=== PATIENT | female | born 1990 | race Caucasian/White ===

== ENCOUNTER 2020-12-07 11:30 | Inpatient (IN) | payer OTHER ==
[2020-12-07] MEDS ORDERED: ACETAMINOPHEN TAB 500 MG TAB PO STA (11:57)
[2020-12-07] MEDS ORDERED: DEXAMETHASONE SOD PHOSPHATE 10 MG/ML 1 ML VIAL IV STA (11:57)
--- NOTE | 2020-12-07 12:40 | XR ---
EXAMINATION TYPE: XR chest 2V DATE OF EXAM: 12/07/2020 COMPARISON: NONE HISTORY: Chest pain TECHNIQUE: Frontal and lateral views of the chest are obtained. FINDINGS: Scattered infiltrates are seen bilaterally felt to reflect Covid 19 pneumonia. No evidence for pneumothorax. No pleural effusion. The cardiac silhouette size is within normal limits. The osseous structures are grossly intact. IMPRESSION: 1. Scattered infiltrates are seen bilaterally felt to reflect Covid 19 pneumonia.
[2020-12-07 13:07] LABS: ALT 37 U/L (4-34); AST 48 U/L (14-36); African American GFR (CKD) >90 (>60 ml/min/1.73 sqM); Albumin 4.3 g/dL (3.5-5.0); Alkaline Phosphatase 67 U/L (38-126); Anion Gap 12 mmol/L; Blood Urea Nitrogen 13 mg/dL (7-17); C Reactive Protein 30.5 mg/L (<10.0); Calcium 9.1 mg/dL (8.4-10.2); Carbon Dioxide 24 mmol/L (22-30); Chloride 103 mmol/L (98-107); Glucose 130 mg/dL (74-99); Non-African American GFR(CKD) >90 (>60 ml/min/1.73 sqM); Potassium 3.4 mmol/L (3.5-5.1); Sodium 139 mmol/L (137-145); Total Bilirubin 0.7 mg/dL (0.2-1.3); Total Protein 7.6 g/dL (6.3-8.2)
[2020-12-07 13:25] LABS: Basophils % (A) 0 %; Eosinophils % (A) 0 %; HCT 40.4 % (34.0-46.0); Lymphocytes # (A) 0.7 k/uL (1.0-4.8); Lymphocytes % (A) 9 %; MCH 28.8 pg (25.0-35.0); MCHC 34.6 g/dL (31.0-37.0); Mean Platelet Volume 7.1; Monocytes # (A) 0.4 k/uL (0-1.0); Monocytes % (A) 5 %; Neutrophils # (A) 6.2 k/uL (1.3-7.7); Neutrophils % (A) 84 %; Platelet Count 247 k/uL (150-450); RBC 4.87 m/uL (3.80-5.40); RDW 12.5 % (11.5-15.5); WBC 7.3 k/uL (3.8-10.6)
[2020-12-07 13:32] LABS: Prothrombin Time 10.4 sec (9.0-12.0)
[2020-12-07 13:44] LABS: D-Dimer 0.67 mg/L FEU (<0.60); Partial Thromboplastin Time 21.1 sec (22.0-30.0)
[2020-12-07] MEDS ORDERED: NALOXONE 0.4 MG/ML 1 ML VIAL IV PRN (14:09)
[2020-12-07] MEDS ORDERED: IBUPROFEN 400 MG TAB PO PRN (14:09)
[2020-12-07] MEDS ORDERED: ACETAMINOPHEN TAB 325 MG TAB PO PRN (14:09)
--- NOTE | 2020-12-07 14:09 | ED ---
General Adult HPI - General Chief complaint: Shortness of Breath Stated complaint: Covid+, CANDIE Time Seen by Provider: 12/07/20 11:35 Source: patient, EMS, RN notes reviewed Mode of arrival: EMS Limitations: no limitations - History of Present Illness Initial comments: 30-year-old female presents emergency Department chief complaint of shortness of breath. Patient states that she tested positive for occult with recently. Patient states that she's having increasing symptoms. Patient states she woke up this morning felt like she was gasping for air. Upon EMS arrival found to be in the 80s on her pulse ox. Patient states that she has no significant lung disease. She continues to have fevers chills body aches. Patient denies any chest pain no leg pain or leg swelling. - Related Data Allergies Allergy/AdvReac Type Severity Reaction Status Date / Time No Known Allergies Allergy Verified 12/07/20 11:52 Review of Systems ROS Statement: Those systems with pertinent positive or pertinent negative responses have been documented in the HPI. ROS Other: All systems not noted in ROS Statement are negative. Past Medical History Past Medical History: Hypertension, Thyroid Disorder History of Any Multi-Drug Resistant Organisms: None Reported Past Surgical History: Cholecystectomy Past Psychological History: No Psychological Hx Reported Smoking Status: Never smoker Past Alcohol Use History: Occasional Past Drug Use History: None Reported General Exam Limitations: no limitations General appearance: alert, in no apparent distress Head exam: Present: atraumatic, normocephalic, normal inspection Eye exam: Present: normal appearance, PERRL, EOMI. Absent: scleral icterus, conjunctival injection, periorbital swelling ENT exam: Present: normal exam, normal oropharynx, mucous membranes moist Neck exam: Present: normal inspection, full ROM. Absent: tenderness, meningismus, lymphadenopathy Respiratory exam: Present: normal lung sounds bilaterally. Absent: respiratory distress, wheezes, rales, rhonchi, stridor Cardiovascular Exam: Present: normal rhythm, tachycardia, normal heart sounds. Absent: systolic murmur, diastolic murmur, rubs, gallop, clicks GI/Abdominal exam: Present: soft, normal bowel sounds. Absent: distended, tenderness, guarding, rebound, rigid Neurological exam: Present: alert, oriented X3 Psychiatric exam: Present: normal affect, normal mood Course Vital Signs 12/07/20 12/07/20 12/07/20 11:40 11:55 12:10 Temperature 100.5 F H 100.5 F H 100.5 F H Pulse Rate 112 H 110 H 108 H Respiratory 24 24 22 Rate Blood Pressure 124/77 128/78 120/78 O2 Sat by Pulse 98 97 98 Oximetry 12/07/20 12/07/20 12/07/20 12:25 12:40 13:58 Temperature 100.4 F H 100.3 F H 99.0 F Pulse Rate 105 H 107 H 99 Respiratory 20 20 18 Rate Blood Pressure 116/74 119/83 114/73 O2 Sat by Pulse 97 98 98 Oximetry Medical Decision Making - Medical Decision Making 22-year-old presented for dyspnea. Patient found be hypoxic she is 90% to high 80s on room air. Patient will be admitted for covid Hypoxia - Lab Data Result diagrams: 12/07/20 12:15 12/07/20 12:15 Lab Results 12/07/20 12/07/20 12/07/20 Range/Units 12:15 12:15 12:15 WBC 7.3 (3.8-10.6) k/uL RBC 4.87 (3.80-5.40) m/uL Hgb 14.0 (11.4-16.0) gm/dL Hct 40.4 (34.0-46.0) % MCV 83.0 (80.0-100.0) fL MCH 28.8 (25.0-35.0) pg MCHC 34.6 (31.0-37.0) g/dL RDW 12.5 (11.5-15.5) % Plt Count 247 (150-450) k/uL MPV 7.1 Neutrophils % 84 % Lymphocytes % 9 % Monocytes % 5 % Eosinophils % 0 % Basophils % 0 % Neutrophils # 6.2 (1.3-7.7) k/uL Lymphocytes # 0.7 L (1.0-4.8) k/uL Monocytes # 0.4 (0-1.0) k/uL Eosinophils # 0.0 (0-0.7) k/uL Basophils # 0.0 (0-0.2) k/uL PT 10.4 (9.0-12.0) sec INR 1.0 (<1.2) APTT 21.1 L (22.0-30.0) sec D-Dimer 0.67 H (<0.60) mg/L FEU Sodium 139 (137-145) mmol/L Potassium 3.4 L (3.5-5.1) mmol/L Chloride 103 (98-107) mmol/L Carbon Dioxide 24 (22-30) mmol/L Anion Gap 12 mmol/L BUN 13 (7-17) mg/dL Creatinine 0.68 (0.52-1.04) mg/dL Est GFR (CKD-EPI)AfAm >90 (>60 ml/min/1.73 sqM) Est GFR (CKD-EPI)NonAf >90 (>60 ml/min/1.73 sqM) Glucose 130 H (74-99) mg/dL Calcium 9.1 (8.4-10.2) mg/dL Magnesium 2.0 (1.6-2.3) mg/dL Total Bilirubin 0.7 (0.2-1.3) mg/dL AST 48 H (14-36) U/L ALT 37 H (4-34) U/L Alkaline Phosphatase 67 (38-126) U/L Troponin I (0.000-0.034) ng/mL C-Reactive Protein 30.5 H (<10.0) mg/L Total Protein 7.6 (6.3-8.2) g/dL Albumin 4.3 (3.5-5.0) g/dL 12/07/20 Range/Units 12:15 WBC (3.8-10.6) k/uL RBC (3.80-5.40) m/uL Hgb (11.4-16.0) gm/dL Hct (34.0-46.0) % MCV (80.0-100.0) fL MCH (25.0-35.0) pg MCHC (31.0-37.0) g/dL RDW (11.5-15.5) % Plt Count (150-450) k/uL MPV Neutrophils % % Lymphocytes % % Monocytes % % Eosinophils % % Basophils % % Neutrophils # (1.3-7.7) k/uL Lymphocytes # (1.0-4.8) k/uL Monocytes # (0-1.0) k/uL Eosinophils # (0-0.7) k/uL Basophils # (0-0.2) k/uL PT (9.0-12.0) sec INR (<1.2) APTT (22.0-30.0) sec D-Dimer (<0.60) mg/L FEU Sodium (137-145) mmol/L Potassium (3.5-5.1) mmol/L Chloride (98-107) mmol/L Carbon Dioxide (22-30) mmol/L Anion Gap mmol/L BUN (7-17) mg/dL Creatinine (0.52-1.04) mg/dL Est GFR (CKD-EPI)AfAm (>60 ml/min/1.73 sqM) Est GFR (CKD-EPI)NonAf (>60 ml/min/1.73 sqM) Glucose (74-99) mg/dL Calcium (8.4-10.2) mg/dL Magnesium (1.6-2.3) mg/dL Total Bilirubin (0.2-1.3) mg/dL AST (14-36) U/L ALT (4-34) U/L Alkaline Phosphatase (38-126) U/L Troponin I <0.012 (0.000-0.034) ng/mL C-Reactive Protein (<10.0) mg/L Total Protein (6.3-8.2) g/dL Albumin (3.5-5.0) g/dL Disposition Clinical Impression: Pneumonia due to COVID-19 virus, Hypoxia Disposition: ADMITTED IP TO THIS [facility] Condition: Serious Referrals: Elisha Longoria MD [Primary Care Provider] - 1-2 days
--- NOTE | 2020-12-07 15:59 | P.CNPUL ---
History of Present Illness Consult date: 12/07/20 Reason for consult: dyspnea, pneumonia History of present illness: 10-year-old female patient, obesity BMI of 44.8 maintained on Synthroid for hyp othyroidism and the patient also has history of hypertension. She is currently hospitalized for: 19 related pneumonia. The patient came into the hospital because of worsening shortness of breath. She was having fever and chills and bodyaches. Her initial pulse ox was around 80% and she was placed on oxygen and currently she is running at 3 L per minute nasal cannula. She was febrile throughout the emergency stay with a T-max of 100.5. For now, the patient started also on Decadron. Her symptoms started on 11/30/2020 and she started having some issues sinus problems. She went to see her primary care physician, she was given antibiotics and the same time she got checked for COVID 19 and she turned out to be positive. Over the past week, she continued to have fever and chills and some shortness of breath and fatigue. 2 days ago, she contacted her physician again and she was given a steroid which she did not take. She end up coming into the hospital emergency department. Review of Systems Constitutional: Reports chills, Reports fatigue, Reports fever, Reports weakness, Reports weight gain Eyes: denies as per HPI, denies blurred vision, denies bulging eye, denies decreased vision, denies diplopia, denies discharge, denies dry eye, denies irritation, denies itching, denies pain, denies photophobia, denies loss of peripheral vision, denies loss of vision, denies tunnel vision/blind spots Ears: deny: decreased hearing, ear discharge, earache, tinnitus Ears, nose, mouth and throat: Denies headache, Denies sore throat Breasts: absent: as per HPI, change in shape, gynecomastia, masses, nipple discharge, pain, skin changes, swelling Cardiovascular: Reports dyspnea on exertion Respiratory: Reports cough, Reports dyspnea Gastrointestinal: Reports as per HPI Genitourinary: Reports as per HPI Menstruation: Reports as per HPI Musculoskeletal: Reports as per HPI Musculoskeletal: absent: ankle pain, ankle stiffness, ankle swelling Integumentary: Reports as per HPI Neurological: Reports as per HPI Psychiatric: Reports as per HPI Endocrine: Reports as per HPI Hematologic/Lymphatic: Reports as per HPI Allergic/Immunologic: Reports as per HPI Past Medical History Past Medical History: Hypertension, Thyroid Disorder History of Any Multi-Drug Resistant Organisms: None Reported Past Surgical History: Cholecystectomy Past Psychological History: No Psychological Hx Reported Smoking Status: Never smoker Past Alcohol Use History: Occasional Past Drug Use History: None Reported Medications and Allergies Home Medications Medication Instructions Recorded Confirmed Type Albuterol Inhaler [Ventolin Hfa 2 puff INHALATION RT-Q4H PRN 12/07/20 12/07/20 History Inhaler] Labetalol [Trandate] 200 mg PO BID 12/07/20 12/07/20 History Levothyroxine Sodium [Synthroid] 50 mcg PO DAILY 12/07/20 12/07/20 History predniSONE [Deltasone] 40 mg PO DAILY 12/07/20 12/07/20 History Allergies Allergy/AdvReac Type Severity Reaction Status Date / Time No Known Allergies Allergy Verified 12/07/20 14:48 Physical Exam Vitals: Vital Signs Temp Pulse Resp BP Pulse Ox 12/07/20 13:58 99.0 F 99 18 114/73 98 12/07/20 12:40 100.3 F H 107 H 20 119/83 98 12/07/20 12:25 100.4 F H 105 H 20 116/74 97 12/07/20 12:10 100.5 F H 108 H 22 120/78 98 12/07/20 11:55 100.5 F H 110 H 24 128/78 97 12/07/20 11:40 100.5 F H 112 H 24 124/77 98 Intake and Output 12/07/20 12/07/20 12/07/20 06:59 14:59 22:59 Other: Weight 149.685 kg Obese, comfortable BMI is 44.8,The patient appeared well nourished and normally developed. Vital signs as documented. Head exam is unremarkable. No scleral icterus or corneal arcus noted. Neck is without jugular venous distension, thyromegaly, or carotid bruits. Carotid upstrokes are brisk bilaterally. Lungs are diminished and there are some crackles in lung bases to auscultation and percussion. Cardiac exam reveals the PMI to be normally sized and situated. Rhythm is regular. First and second heart sounds normal. No murmurs, rubs or gallops. Abdominal exam reveals normal bowel sounds, no masses, no organomegaly and no aortic enlargement. Extremities are nonedematous and both femoral and pedal pulses are normal. Results - Laboratory Findings CBC and BMP: 12/07/20 12:15 12/07/20 12:15 PT/INR, D-dimer PT 10.4 sec (9.0-12.0) 12/07/20 12:15 INR 1.0 (<1.2) 12/07/20 12:15 D-Dimer 0.67 mg/L FEU (<0.60) H 12/07/20 12:15 Abnormal lab findings: Abnormal Labs 12/07/20 12/07/20 12/07/20 12:15 12:15 12:15 Lymphocytes # 0.7 L APTT 21.1 L D-Dimer 0.67 H Potassium 3.4 L Glucose 130 H AST 48 H ALT 37 H C-Reactive Protein 30.5 H - Diagnostic Findings Chest x-ray: image reviewed Assessment and Plan Plan: 1 acute COVID 19 related pneumonia with secondary dyspnea and cough and shortness of breath. The patient symptoms started on 11/30/2020. The patient was diagnosed on the same day and since then the patient's condition is progressively getting worse 2 Dyspnea, secondary to above 3 acute hypoxic respiratory failure secondary to above and the patient is currently on 3 L of oxygen by nasal cannula 4 Lymphopenia secondary to above 5 obesity with a BMI of 44.8 6 hypothyroidism 7 hypertension Plan Start the patient on oxygen 3 L and titrate the fluid to maintain a saturation above 90% Decadron 6 mg by mouth daily Remdesivir a total of 5 days per protocol Lovenox 40 mg subcu for DVT prophylaxis Vitamin C and vitamin D and zinc Resume home medications We'll continue to follow
[2020-12-07] MEDS: ENOXAPARIN 40 MG/0.4 ML SYRINGE SQ SCH (16:26)
[2020-12-07] MEDS: ZINC SULFATE 220 MG CAP PO SCH (16:26)
[2020-12-07] MEDS: ASCORBIC ACID 500 MG TAB PO SCH (16:26)
[2020-12-07] MEDS: CHOLECALCIFEROL 25 MCG (1000 IU) TABLET PO SCH (16:26)
[2020-12-07] MEDS ORDERED: REMDESIVIR 200 MG in SODIUM CHLORIDE 0.9% 250 ML IVPB ONE (16:30)
[2020-12-07] MEDS: LABETALOL 200 MG TAB PO SCH (21:47)
--- NOTE | 2020-12-07 23:31 | CONS ---
CONSULTATION DATE OF SERVICE: 12/07/2020 REASON FOR CONSULTATION: COVID-19 pneumonia. HISTORY OF PRESENT ILLNESS: The patient is a 30 -year-old female with past medical history of hypothyroidism, hypertension, did have obesity with a BMI of 44.8, presenting to the hospital with increasing shortness of breath and cough along with body aches. The patient's symptoms have been going on for more than a week now. These symptoms started initially with sinus congestion and possible sinusitis. Apparently the patient has been seen by her primary care physician and has been treated with antibiotics and steroids without any improvement. The patient has been diagnosed with with Covid on the initially and has been treated symptomatically with symptoms not improving especially the patient having increasing shortness of breath on minimal exertion. The patient also had a cough which has been moderate intensity. Some clear sputum. No hemoptysis. Denies any pleuritic chest pain. Did have nausea but no vomiting. Did have some diarrhea. No blood or mucus in the stool. With these symptoms, the patient was evaluated by the ER physician. On arrival to the ER, the patient did have a fever of 100.5 degrees Fahrenheit. The patient was noticed to be hypoxic on admission she was 90% on room air, currently 96% on 2 L nasal cannula. The patient did have a normal white count with lymphopenia. D-dimer was 0.68. Creatinine was normal. Liver enzymes are elevated. CRP is 30.5. The patient did have a chest x-ray showing scattered infiltrates seen bilaterally felt to reflect Covid 19 pneumonia. The patient has been admitted to the hospital. Infectious Disease was consulted for further management. REVIEW OF SYSTEMS: Positive points have been mentioned in HPI. Rest of the systems are negative. PAST MEDICAL HISTORY: Hypertension, hypothyroidism. PAST SURGICAL HISTORY: Cholecystectomy. SOCIAL HISTORY: Denies smoking. Occasionally drinks. No drug use. FAMILY HISTORY: No pertinent findings noticed. ALLERGIES: No known drug allergies. MEDICATIONS: The patient is currently on Tylenol, vitamin C, vitamin D3, dexamethasone 6 mg daily, Lovenox, Motrin, Synthroid, Narcan, Remdesivir, zinc sulfate. PHYSICAL EXAMINATION: Blood pressure 141/89, pulse of 89, temperature 98.9, T-max 100.5. She is 96% on 2 L nasal cannula. General description is a middle-aged female lying in bed in no distress. No tachypnea or accessory muscles of respiration use. HEENT: Examination shows no pallor or scleral icterus. Oral mucous membranes dry. NECK: Trachea central. No thyromegaly. LUNGS: Unlabored breathing. Coarse breath sounds bilaterally. No wheeze. HEART S1, S2. Regular rate and rhythm. ABDOMEN: Soft, no tenderness. No guarding. No rigidity. EXTREMITIES: No edema of the feet. SKIN examination: No rash or mass palpable. NEUROLOGICAL: The patient is awake, alert and oriented times three. Mood and affect normal. LABS: Hemoglobin is 14.3, white count 7.3, D. dimer 0.67. Creatinine is 1.68. AST elevated. CRP 30.5. Chest x-ray with bilateral infiltrate as mentioned above. DIAGNOSTIC IMPRESSION AND PLAN: Patient admitted to the hospital with increasing shortness of breath and cough, congestion, fever, symptoms have been going on for more than a week now. The patient did have a have evidence of COVID-19 pneumonia with evidence of bilateral infiltrate, lymphopenia and elevated liver enzymes. The patient did have hypoxemia on presentation to the hospital sating 90% on room air. PLAN: 1. Patient was started on Remdesivir per protocol 200 mg daily followed by 100 mg daily for four more days. 2. Lovenox, dexamethasone, zinc, vitamin C solution and respiratory support. 3. We will follow on clinical condition and further adjust medication if needed. Thank you for this consultation. We will follow this patient along with you. MMODL / IJN: [id number] /
[2020-12-08] MEDS: LEVOTHYROXINE 50 MCG TAB PO SCH (05:34)
--- NOTE | 2020-12-08 07:37 | XR ---
EXAMINATION TYPE: XR chest 1V portable DATE OF EXAM: 12/08/2020 COMPARISON: 12/07/2020 12/08/2020 HISTORY: Chest pain TECHNIQUE: Single frontal view of the chest is obtained. FINDINGS: Patchy right upper lobe and left perihilar/basilar infiltrates persist without significant change. The cardiac silhouette size is within normal limits. The osseous structures are intact. IMPRESSION: 1. Patchy right upper lobe and left perihilar/basilar infiltrates persist without significant change .
[2020-12-08] MEDS: LABETALOL 200 MG TAB PO SCH ×2 (08:12→20:12)
[2020-12-08] MEDS: ASCORBIC ACID 500 MG TAB PO SCH (08:12)
[2020-12-08] MEDS: ZINC SULFATE 220 MG CAP PO SCH (08:12)
[2020-12-08] MEDS: CHOLECALCIFEROL 25 MCG (1000 IU) TABLET PO SCH (08:12)
[2020-12-08] MEDS: ENOXAPARIN 40 MG/0.4 ML SYRINGE SQ SCH (08:12)
[2020-12-08] MEDS: DEXAMETHASONE SOD PHOSPHATE 10 MG/ML 1 ML VIAL IV SCH (08:12)
[2020-12-08 09:13] LABS: C Reactive Protein 31.9 mg/L (<10.0)
[2020-12-08] MEDS ORDERED: ONDANSETRON 4 MG/2 ML VIAL IVP PRN (11:11)
--- NOTE | 2020-12-08 11:47 | P.PN ---
Subjective Progress Note Date: 12/08/20 30-year-old female patient, obesity BMI of 44.8 maintained on Synthroid for hypothyroidism and the patient also has history of hypertension. She is currently hospitalized for: 19 related pneumonia. The patient came into the hospital because of worsening shortness of breath. She was having fever and ch ills and bodyaches. Her initial pulse ox was around 80% and she was placed on oxygen and currently she is running at 3 L per minute nasal cannula. She was febrile throughout the emergency stay with a T-max of 100.5. For now, the patient started also on Decadron. Her symptoms started on 11/30/2020 and she started having some issues sinus problems. She went to see her primary care physician, she was given antibiotics and the same time she got checked for COVID 19 and she turned out to be positive. Over the past week, she continued to have fever and chills and some shortness of breath and fatigue. 2 days ago, she contacted her physician again and she was given a steroid which she did not take. She end up coming into the hospital emergency department. On today's evaluation of 12/08/2020, the patient is doing well. She is a 30-year-old female patient, hospitalized for Covid 19 related pneumonia. She is on 2 L and her pulse ox is around 93%. She is on Decadron. She is also on a #2 of REM. She is taking her treatment without any difficulty and side effects. Other blood work today, she has a d-dimer of 0.44. Her LDH level is at 1358 and his CRP level is at 31.9. The chest x-ray from today is showing patchy bilateral pulmonary infiltrates, right upper lobe, left perihilar and the left hemidiaphragm is quite elevated. No major interval change compared to yesterday. She is afebrile. She has nausea. No vomiting. No emesis. No altered mentation. Objective - Vital Signs Vital signs: Vital Signs Temp 98.5 F 12/08/20 10:00 Pulse 90 12/08/20 10:00 Resp 19 12/08/20 10:00 BP 121/79 12/08/20 10:00 Pulse Ox 93 L 12/08/20 10:00 Intake & Output 12/07/20 12/08/20 12/08/20 18:59 06:59 18:59 Intake Total 250 250 Balance 250 250 Weight 149.685 kg Intake: IV 250 Remdesivir 100 mg In 250 Sodium Chloride 0.9% 250 ml @ 250 mls/hr IVPB DAILY@1630 FRANCHESCA Rx#: [id number] Intake, IV Titration 250 Amount Remdesivir 200 mg In 250 Sodium Chloride 0.9% 250 ml @ 250 mls/hr IVPB ONCE ONE Rx#:[id number] Other: # Voids 1 - Exam Obese, comfortable BMI is 44.8,The patient appeared well nourished and normally developed. Vital signs as documented. Head exam is unremarkable. No scleral icterus or corneal arcus noted. Neck is without jugular venous distension, thyromegaly, or carotid bruits. Carotid upstrokes are brisk bilaterally. Lungs a re diminished and there are some crackles in lung bases to auscultation and percussion. Cardiac exam reveals the PMI to be normally sized and situated. Rhythm is regular. First and second heart sounds normal. No murmurs, rubs or gallops. Abdominal exam reveals normal bowel sounds, no masses, no organomegaly and no aortic enlargement. Extremities are nonedematous and both femoral and pedal pulses are normal. - Labs CBC & Chem 7: 12/07/20 12:15 12/07/20 12:15 Labs: Abnormal Lab Results - Last 24 Hours (Table) 12/07/20 12/07/20 12/07/20 Range/Units 12:15 12:15 12:15 Lymphocytes # 0.7 L (1.0-4.8) k/uL APTT 21.1 L (22.0-30.0) sec D-Dimer 0.67 H (<0.60) mg/L FEU Potassium 3.4 L (3.5-5.1) mmol/L Glucose 130 H (74-99) mg/dL AST 48 H (14-36) U/L ALT 37 H (4-34) U/L Lactate Dehydrogenase (313-618) U/L C-Reactive Protein 30.5 H (<10.0) mg/L 12/08/20 Range/Units 07:49 Lymphocytes # (1.0-4.8) k/uL APTT (22.0-30.0) sec D-Dimer (<0.60) mg/L FEU Potassium (3.5-5.1) mmol/L Glucose (74-99) mg/dL AST (14-36) U/L ALT (4-34) U/L Lactate Dehydrogenase 1358 H (313-618) U/L C-Reactive Protein 31.9 H (<10.0) mg/L Assessment and Plan Plan: 1 acute COVID 19 related pneumonia with secondary dyspnea and cough and shortness of breath. The patient symptoms started on 11/30/2020. The patient was diagnosed on the same day and since then the patient's condition is progressively getting worse for now she is stable on 2 L about 2 by nasal cannula. She is undergoing treatment with Decadron and REM. She is on day #2. 2 Dyspnea, secondary to above 3 acute hypoxic respiratory failure secondary to above and the patient is currently on 2 L of oxygen by nasal cannula 4 Lymphopenia secondary to above 5 obesity with a BMI of 44.8 6 hypothyroidism 7 hypertension Plan oxygen 2 L and titrate the fluid to maintain a saturation above 90% Continue Decadron 6 mg by mouth daily Remdesivir a total of 5 days per protocol Lovenox 40 mg subcu for DVT prophylaxis Vitamin C and vitamin D and zinc Resume home medications We'll continue to follow
--- NOTE | 2020-12-08 11:56 | P.HPIM ---
History of Present Illness H&P Date: 12/07/20 Chief Complaint: Shortness of breath Patient is a 30-year-old female with a known history of hypertension, hypothyroidism presents to ER with complaints of shortness of breath. Patient was tested positive for covid 19 pneumonia about a week ago. Patient positive as an outpatient. For the past 1 week patient has been having generalized weakness fevers chills and worsening shortness of breath.. Patient was started on steroid course. due to worsening symptoms patient presents to ER. Patient was febrile with T-max 100.5 on admission tachycardic and saturating at 90% on room air. Laboratory data showed WBC 7.3 hemoglobin 14.0 and platelets 247, d-dimer 0.67 potassium 3.4 with sodium 139 BUN 13 and creatinine 0.68 Troponin 1 negative and CRP 30.5 Chest x-ray showed scattered infiltrates are seen bilaterally covid19 Review of Systems Constitutional: Patient does have fever and chills and generalized weakness and malaise and body aches.. Abdomen: Patient denied nausea vomiting and diarrhea and abdominal pain. Cardiovascular: Patient denies any chest pain or short of breath no palpitations. Does have cough without sputum production. Shortness of breath present. Neurologic: Patient denied any numbness or tingling headache. Musculoskeletal: Patient denies any complaints of joint swelling or deformity. Skin: Negative Psychiatric: Negative Endocrine: No heat or cold intolerance. No recent weight gain. Genitourinary: No dysuria or hematuria. All other 14 point ROS negative except the above Past Medical History Past Medical History: Hypertension, Thyroid Disorder History of Any Multi-Drug Resistant Organisms: None Reported Past Surgical History: Cholecystectomy Past Psychological History: No Psychological Hx Reported Smoking Status: Never smoker Past Alcohol Use History: Occasional Past Drug Use History: None Reported - Past Family History Mother Family Medical History: Diabetes Mellitus Father History Unknown: Yes Medications and Allergies Home Medications Medication Instructions Recorded Confirmed Type Albuterol Inhaler [Ventolin Hfa 2 puff INHALATION RT-Q4H PRN 12/07/20 12/07/20 History Inhaler] Labetalol [Trandate] 200 mg PO BID 12/07/20 12/07/20 History Levothyroxine Sodium [Synthroid] 50 mcg PO DAILY 12/07/20 12/07/20 History predniSONE [Deltasone] 40 mg PO DAILY 12/07/20 12/07/20 History Allergies Allergy/AdvReac Type Severity Reaction Status Date / Time No Known Allergies Allergy Verified 12/07/20 18:12 Physical Exam Vitals: Vital Signs Temp Pulse Resp BP Pulse Ox 12/07/20 17:43 98.7 F 94 18 128/86 98 12/07/20 16:25 98.1 F 96 18 141/91 98 12/07/20 13:58 99.0 F 99 18 114/73 98 12/07/20 12:40 100.3 F H 107 H 20 119/83 98 12/07/20 12:25 100.4 F H 105 H 20 116/74 97 12/07/20 12:10 100.5 F H 108 H 22 120/78 98 12/07/20 11:55 100.5 F H 110 H 24 128/78 97 12/07/20 11:40 100.5 F H 112 H 24 124/77 98 Intake and Output 12/07/20 12/07/20 12/07/20 06:59 14:59 22:59 Other: Weight 149.685 kg PHYSICAL EXAMINATION: Patient is lying in the bed comfortably, no acute distress, awake alert and oriented.. HEENT: Normocephalic. Neck is supple. Pupils reactive. Nostrils clear. Oral cavity is moist. Ears reveal no drainage. Neck reveals no JVD, carotid bruits, or thyromegaly. CHEST EXAMINATION: Trachea is central. Symmetrical expansion. Bilateral coarse breath sounds. Nonlabored breathing.. CARDIAC: Normal S1, S2 with no gallops. No murmurs ABDOMEN: Soft. Bowel sounds normal. No organomegaly. No abdominal bruits. Extremities: reveal no edema. No clubbing or cyanosis Neurologically awake, alert, oriented x3 with well-coordinated movements. No focal deficits noted Skin: No rash or skin lesions. Psychiatric: Coperative. Nonsuicidal Musculoskeletal: No joint swelling or deformity. Normal range of motion. Results CBC & Chem 7: 12/07/20 12:15 12/07/20 12:15 Labs: Abnormal Lab Results - Last 24 Hours (Table) 12/07/20 12/07/20 12/07/20 Range/Units 12:15 12:15 12:15 Lymphocytes # 0.7 L (1.0-4.8) k/uL APTT 21.1 L (22.0-30.0) sec D-Dimer 0.67 H (<0.60) mg/L FEU Potassium 3.4 L (3.5-5.1) mmol/L Glucose 130 H (74-99) mg/dL AST 48 H (14-36) U/L ALT 37 H (4-34) U/L C-Reactive Protein 30.5 H (<10.0) mg/L Thrombosis Risk Factor Assmnt - DVT/VTE Prophylaxis DVT/VTE Prophylaxis: Pharmacologic Prophylaxis ordered Assessment and Plan Assessment: Acute covid 19 pneumonia. Patient was diagnosed on 11/30/2020 with one-day duration of symptoms. Generalized weakness, myalgia, fever or chills and shortness of breath secondary to above Acute hypoxic respiratory failure secondary to above Elevated CRP level and lymphopenia. Hypertension and hypothyroidism Multiple be stated BMI 44.8 DVT prophylaxis Lovenox plan: patient will be continued on oxygen supplementation. Started on that some is a 6 g daily and Lovenox subcu daily. Continue with vitamin supplementation. Pulmonary is on board. Patient was started on Remdesivir course. Continue to follow closely on current home medications and supportive care. Further recommendations based on the clinical course. Discussed with the patient in detail. Time with Patient: Greater than 30
[2020-12-08] MEDS: REMDESIVIR 100 MG in SODIUM CHLORIDE 0.9% 250 ML IVPB SCH (15:44)
[2020-12-08] MEDS: MELATONIN 3 MG TABLET PO SCH (20:16)
--- NOTE | 2020-12-09 01:32 | P.PN ---
Subjective Progress Note Date: 12/08/20 Principal diagnosis: Acute covid 19 pneumonia Patient is a 30-year-old female with a known history of hypertension, hypothyroidism presents to ER with complaints of shortness of breath. Patient was tested positive for covid 19 pneumonia about a week ago. Patient positive as an outpatient. For the past 1 week patient has been having generalized weakness fevers chills and worsening shortness of breath.. Patient was started on steroid course. due to worsening symptoms patient presents to ER. Patient was febrile with T-max 100.5 on admission tachycardic and saturating at 90% on room air. Laboratory data showed WBC 7.3 hemoglobin 14.0 and platelets 247, d-dimer 0.67 potassium 3.4 with sodium 139 BUN 13 and creatinine 0.68 Troponin 1 negative and CRP 30.5 Chest x-ray showed scattered infiltrates are seen bilaterally covid19 12/08/2020 Patient is currently resting in the bed comfortably. Shortness of breath with walking present. Requiring oxygen 2 L via nasal cannula. Continued on remdesivir course. Patient is also on dexamethasone and Lovenox. Laboratory showed LDH 1358 and CRP 31.8 and D-dimer 0.44. Chest x-ray showed patchy right upper lobe and left perihilar/bibasilar infiltrates persistent without significant change. Patient has been afebrile. No nausea vomiting or abdominal pain or diarrhea. No dysuria or hematuria. Current medications reviewed. Objective - Vital Signs Vital signs: Vital Signs Temp 98.5 F 12/08/20 14:00 Pulse 95 12/08/20 14:00 Resp 20 12/08/20 14:00 BP 142/93 12/08/20 14:00 Pulse Ox 96 12/08/20 14:00 Intake & Output 12/07/20 12/08/20 12/08/20 18:59 06:59 18:59 Intake Total 250 250 Balance 250 250 Weight 149.685 kg Intake: IV 250 Remdesivir 100 mg In 250 Sodium Chloride 0.9% 250 ml @ 250 mls/hr IVPB DAILY@1630 [facility] Rx#: [id number] Intake, IV Titration 250 Amount Remdesivir 200 mg In 250 Sodium Chloride 0.9% 250 ml @ 250 mls/hr IVPB ONCE ONE Rx#:[id number] Other: # Voids 1 - Exam PHYSICAL EXAMINATION: Patient is lying in the bed comfortably, no acute distress, awake alert and oriented.. HEENT: Normocephalic. Neck is supple. Pupils reactive. Nostrils clear. Oral cavity is moist. Ears reveal no drainage. Neck reveals no JVD, carotid bruits, or thyromegaly. CHEST EXAMINATION: Trachea is central. Symmetrical expansion. Bilateral coarse breath sounds. Nonlabored breathing.. CARDIAC: Normal S1, S2 with no gallops. No murmurs ABDOMEN: Soft. Bowel sounds normal. No organomegaly. No abdominal bruits. Extremities: reveal no edema. No clubbing or cyanosis Neurologically awake, alert, oriented x3 with well-coordinated movements. No focal deficits noted Skin: No rash or skin lesions. Psychiatric: Coperative. Nonsuicidal Musculoskeletal: No joint swelling or deformity. Normal range of motion. - Labs CBC & Chem 7: 12/07/20 12:15 12/07/20 12:15 Labs: Abnormal Lab Results - Last 24 Hours (Table) 12/08/20 Range/Units 07:49 Lactate Dehydrogenase 1358 H (313-618) U/L C-Reactive Protein 31.9 H (<10.0) mg/L Assessment and Plan Assessment: Acute covid 19 pneumonia. Patient was diagnosed on 11/30/2020 with one-day duration of symptoms. Generalized weakness, myalgia, fever or chills and shortness of breath secondary to above Acute hypoxic respiratory failure secondary to above Elevated CRP level and lymphopenia. Hypertension and hypothyroidism Multiple be stated BMI 44.8 DVT prophylaxis Lovenox plan: patient will be continued on oxygen supplementation. Started on that some is a 6 g daily and Lovenox subcu daily. Continue with vitamin supplementation. Pulmonary is on board. Patient was started on Remdesivir course. Continue to follow closely on current home medications and supportive care. Further recommendations based on the clinical course. Discussed with the patient in detail. Time with Patient: Greater than 30
--- NOTE | 2020-12-09 04:39 | PN ---
PROGRESS NOTE DATE OF SERVICE: 12/08/2020. REASON FOR VISIT: Covid 19 pneumonia. INTERVAL HISTORY: Patient is currently afebrile. The patient is breathing comfortably today. The patient denies having any chest pain. No shortness of breath. No cough. No abdominal pain. No worsening diarrhea. PHYSICAL EXAMINATION: Blood pressure 132/69, pulse of 77, temperature 98. She is 96% on 2 L nasal cannula. General description is female up in the bed in no distress. Respiratory system: Unlabored breathing, decreased intensity of breath sounds. No wheeze. HEART: S1, S2. Regular rate and rhythm. Abdomen soft, no tenderness. LABS: D-dimer has normalized and LDH CRP 31.9. IMPRESSION/PLAN: Patient with acute COVID-19 pneumonia in this patient seemed to respond to the initial treatment protocol of dexamethasone, Lovenox, Remdesivir, to continue along with respiratory support and monitor clinical course closely. MMODL / IJN: [id number] /
[2020-12-09] MEDS: LEVOTHYROXINE 50 MCG TAB PO SCH (06:05)
[2020-12-09 08:48] LABS: HCT 39.6 % (37.2-46.3); HGB 13.2 g/dL (12.0-15.0); MCH 28.6 pg (27.0-32.0); MCHC 33.3 g/dL (32.0-37.0); MCV 85.9 fL (80.0-97.0); Mean Platelet Volume 9.8 fL (9.5-12.2); Platelet Count 372 X 10*3/uL (140-440); RBC 4.61 X 10*6/uL (4.10-5.20); RDW 12.4 % (11.5-14.5); WBC 5.93 X 10*3/uL (4.50-10.00)
[2020-12-09] MEDS: ZINC SULFATE 220 MG CAP PO SCH (09:33)
[2020-12-09] MEDS: CHOLECALCIFEROL 25 MCG (1000 IU) TABLET PO SCH (09:33)
[2020-12-09] MEDS: ASCORBIC ACID 500 MG TAB PO SCH (09:33)
[2020-12-09] MEDS: DEXAMETHASONE SOD PHOSPHATE 10 MG/ML 1 ML VIAL IV SCH (09:33)
[2020-12-09] MEDS: ENOXAPARIN 40 MG/0.4 ML SYRINGE SQ SCH (09:34)
[2020-12-09] MEDS: LABETALOL 200 MG TAB PO SCH ×2 (09:34→21:42)
[2020-12-09 10:48] LABS: Basophils # (A) 0.01 X 10*3/uL (0.00-0.10); Basophils % (A) 0.2 %; Eosinophils # (A) 0 X 10*3/uL (0.04-0.35); Eosinophils % (A) 0 %; Lymphocytes # (A) 1.05 X 10*3/uL (0.90-5.00); Lymphocytes % (A) 17.7 %; Monocytes # (A) 0.77 X 10*3/uL (0.20-1.00); Neutrophils # (A) 4.05 X 10*3/uL (1.80-7.70); Neutrophils % (A) 68.3 %
[2020-12-09 12:57] LABS: African American GFR (CKD) 136.7 (60.0-200.0); Anion Gap 8.9 mmol/L (4.00-12.00); BUN/Creat Ratio 27.14 Ratio (12.00-20.00); C Reactive Protein 1.2 mg/dL (0.0-0.8); Calcium 9.2 mg/dL (8.7-10.3); Carbon Dioxide 25.1 mmol/L (21.6-31.8); Non-African American GFR(CKD) 117.9 (60.0-200.0); Potassium 3.4 mmol/L (3.5-5.5)
[2020-12-09] MEDS: REMDESIVIR 100 MG in SODIUM CHLORIDE 0.9% 250 ML IVPB SCH (16:51)
--- NOTE | 2020-12-09 17:52 | P.PN ---
Subjective Progress Note Date: 12/09/20 Principal diagnosis: Acute CoVID 19 pneumonia 30-year-old female patient, obesity BMI of 44.8 maintained on Synthroid for hypothyroidism and the patient also has history of hypertension. She is currently hospitalized for: 19 related pneumonia. The patient came into the hospital because of worsening shortness of breath. She was having fever and chills and bodyaches. Her initial pulse ox was around 80% and she was placed on oxygen and currently she is running at 3 L per minute nasal cannula. She was febrile throughout the emergency stay with a T-max of 100.5. For now, the patient started also on Decadron. Her symptoms started on 11/30/2020 and she started having some issues sinus problems. She went to see her primary care physician, she was given antibiotics and the same time she got checked for COVID 19 and she turned out to be positive. Over the past week, she continued to have fever and chills and some shortness of breath and fatigue. 2 days ago, she con tacted her physician again and she was given a steroid which she did not take. She end up coming into the hospital emergency department. On today's evaluation of 12/08/2020, the patient is doing well. She is a 30-year-old female patient, hospitalized for Covid 19 related pneumonia. She is on 2 L and her pulse ox is around 93%. She is on Decadron. She is also on a #2 of REM. She is taking her treatment without any difficulty and side effects. Other blood work today, she has a d-dimer of 0.44. Her LDH level is at 1358 and his CRP level is at 31.9. The chest x-ray from today is showing patchy bilateral pulmonary infiltrates, right upper lobe, left perihilar and the left hemidiaphragm is quite elevated. No major interval change compared to yesterday. She is afebrile. She has nausea. No vomiting. No emesis. No altered mentation. The patient is a 12/09/2020 in follow-up on the regular medical floor. She is currently sitting up in bed. Awake and alert in no acute distress. Feeling about the same today as compared to yesterday. She is on 3 L/m per nasal cannula to maintain O2 saturation in the 90s. This is day #3 of Remdesivir. White count 5.9. Hemoglobin 13.2. Lymphocytes 1.05. D-dimer 0.39. Sodium 140. Potassium 3.4. Creatinine 0.7. LDH 392. C-reactive protein 1.2. Continue on Decadron, Lovenox, vitamin supplements. Objective - Vital Signs Vital signs: Vital Signs Temp 98.5 F 12/09/20 14:16 Pulse 81 12/09/20 14:16 Resp 18 12/09/20 14:16 BP 109/67 12/09/20 14:16 Pulse Ox 94 L 12/09/20 14:16 Intake & Output 12/08/20 12/09/20 12/09/20 18:59 06:59 18:59 Intake Total 250 Balance 250 Intake: IV 250 Remdesivir 100 mg In 250 Sodium Chloride 0.9% 250 ml @ 250 mls/hr IVPB DAILY@1630 [facility] Rx#: [id number] Other: Voiding Method Toilet # Voids 2 - Exam This 30-year-old female patient, Obese, comfortable BMI is 44.8,The patient appeared well nourished and normally developed. Vital signs as documented. Head exam is unremarkable. No scleral icterus or corneal arcus noted. Neck is without jugular venous distension, thyromegaly, or carotid bruits. Carotid upstrokes are brisk bilaterally. Lungs are diminished and there are some crackles in lung base s to auscultation and percussion. Cardiac exam reveals the PMI to be normally sized and situated. Rhythm is regular. First and second heart sounds normal. No murmurs, rubs or gallops. Abdominal exam reveals normal bowel sounds, no masses, no organomegaly and no aortic enlargement. Extremities are nonedematous and both femoral and pedal pulses are normal. - Labs CBC & Chem 7: 12/09/20 06:20 12/09/20 06:20 Labs: Abnormal Lab Results - Last 24 Hours (Table) 12/09/20 12/09/20 Range/Units 06:20 06:20 Immature Gran # 0.05 H (0.00-0.04) X 10*3/uL Eosinophils # 0 L (0.04-0.35) X 10*3/uL Potassium 3.4 L (3.5-5.5) mmol/L BUN/Creatinine Ratio 27.14 H (12.00-20.00) Ratio Glucose 117 H (70-110) mg/dL Lactate Dehydrogenase 392 H (120-246) U/L C-Reactive Protein 1.2 H (0.0-0.8) mg/dL Assessment and Plan Assessment: 1 acute COVID 19 related pneumonia with secondary dyspnea and cough and shortness of breath. The patient symptoms started on 11/30/2020. The patient was diagnosed on the same day and since then the patient's condition is progressively getting worse for now she is stable on 23L about 2 by nasal cannula. She is undergoing treatment with Lanoxin, Decadron and Remdesivir She is on day #3. 2 Dyspnea, secondary to above 3 acute hypoxic respiratory failure secondary to above and the patient is currently on 2 L of oxygen by nasal cannula 4 Lymphopenia secondary to above 5 obesity with a BMI of 44.8 6 hypothyroidism 7 hypertension Plan The patient was seen and evaluated by Dr. Patricia Currently stable from the pulmonary standpoint Continue Remdesivir, Lovenox, Decadron, vitamin supplement Titrate down the FiO2 as tolerated We will continue to follow I, the cosigning physician, performed a history & physical examination of the patient. Lungs sounds with crackles in the bilateral posterior bases. Maintaining good O2 saturations in the 90s on 3 L/m per nasal cannula. I discussed the assessment and plan of care with my nurse practitioner, Mei Callahan. I attest to the above note as dictated by her.
--- NOTE | 2020-12-09 18:34 | PN ---
PROGRESS NOTE DATE OF SERVICE: 12/09/2020 This 30-year-old woman who was admitted with acute bilateral COVID-19 pneumonia with hypoxia is being closely monitored at this time. The patient is being treated with remdesivir, which is actually day 3 today. The patient is on Lovenox and other medications as well. The inflammatory markers are also elevated, including elevated D- dimer at the time of admission. AST and ALT were also elevated. LDH was also elevated as well as CRP. Past medical history reviewed. REVIEW OF SYSTEMS: CARDIOVASCULAR SYSTEM: No angina, palpitations. RESPIRATORY SYSTEM: As mentioned earlier. GI: As mentioned earlier. : No dysuria or retention. NERVOUS SYSTEM: No numbness, weakness. MEDICATIONS: Current medications are reviewed and include Tylenol, vitamin C, vitamin D3, Decadron, Lovenox. Motrin. Doses are reviewed. PHYSICAL EXAMINATION: Patient is alert, oriented x3. Pulse 81, blood pressure 109/67, respiration 18, temperature 98.4, pulse ox 94% on 3 L. HEENT: Conjunctivae normal. NECK: No jugular venous distention. CARDIOVASCULAR SYSTEM: S1, S2 muffled. RESPIRATORY SYSTEM: Breath sounds diminished at the bases. A few scattered rhonchi and crackles. ABDOMEN: Soft, obese, non-tender. LEGS: No edema. No swelling. NERVOUS SYSTEM: No focal deficit. LABS: CBC within normal limits. Sodium 140, potassium 3.4. LDH noted. ASSESSMENT: 1. Acute COVID-19 bilateral interstitial pneumonia with acute hypoxic respiratory failure. 2. Acute COVID-19 infection. 3. Hypokalemia. 4. Elevated inflammatory barrientos. 5. Elevated D-dimer, present on admission, which is improved. 6. Hypokalemia. 7. Elevated LDH and CRP. 8. History of hypertension. 9. Hypothyroidism. 10.History of cholecystectomy. 11.Obesity with body mass index of 44.8. 12.FULL CODE. RECOMMENDATIONS AND DISCUSSION: In this 30-year-old woman who presented with multiple complex medical issues, we will monitor the patient closely, continue the current medications, continue symptomatic treatment, continue DVT prophylaxis. Continue with the zinc, vitamin D, vitamin C. Continue the Lovenox. Continue remdesivir. Continue the rest of the medications. Incentive spirometry. Prognosis guarded. Further recommendations to follow. Closely with Pulmonary. MMODL / IJN: [id number] /
[2020-12-09] MEDS: ALBUTEROL HFA INHALER INHALATION SCH (20:46)
[2020-12-09] MEDS: MELATONIN 3 MG TABLET PO SCH (21:38)
--- NOTE | 2020-12-09 23:37 | PN ---
PROGRESS NOTE DATE OF SERVICE: 12/09/2020 REASON FOR FOLLOWUP: COVID-19 pneumonia. INTERVAL HISTORY: The patient is currently afebrile. The patient is breathing comfortably. The patient denies having any chest pain or shortness of breath. Occasional cough. No nausea, no vomiting, no abdominal pain or diarrhea. PHYSICAL EXAMINATION: Blood pressure 119/79 with a pulse of 95, temperature 98.3. She is 95% on room air. General description is a middle-aged female up in the bed in no distress. RESPIRATORY SYSTEM: Unlabored breathing with decreased intensity of breath sounds. No wheeze. HEART: S1, S2. Regular rate and rhythm. ABDOMEN: Soft. No tenderness. LABS: Hemoglobin is 13.1, white count of 5.93, BUN of 19, creatinine 0.7. DIAGNOSTIC IMPRESSION AND PLAN: Patient with acute COVID-19 pneumonia. Sputum has shown clinical improvement. Also there has been improvement of the inflammatory marker as well as D-dimer. Patient currently on remdesivir, dexamethasone, Lovenox, zinc; zinc to continue along with respiratory support. Monitor clinical course closely. MMODL / IJN: [id number] /
[2020-12-10] MEDS: LEVOTHYROXINE 50 MCG TAB PO SCH (05:37)
[2020-12-10] MEDS: ASCORBIC ACID 500 MG TAB PO SCH (07:49)
[2020-12-10] MEDS: ENOXAPARIN 40 MG/0.4 ML SYRINGE SQ SCH (07:49)
[2020-12-10] MEDS: CHOLECALCIFEROL 25 MCG (1000 IU) TABLET PO SCH (07:49)
[2020-12-10] MEDS: DEXAMETHASONE SOD PHOSPHATE 10 MG/ML 1 ML VIAL IV SCH (07:50)
[2020-12-10] MEDS: ZINC SULFATE 220 MG CAP PO SCH (07:50)
[2020-12-10] MEDS: LABETALOL 200 MG TAB PO SCH ×2 (08:13→21:17)
[2020-12-10] MEDS: ALBUTEROL HFA INHALER INHALATION SCH ×4 (08:38→20:21)
[2020-12-10 10:22] LABS: C Reactive Protein 0.4 mg/dL (0.0-0.8)
[2020-12-10] MEDS ORDERED: Magnesium Replacement Protocol 1 EACH MISC MISCELLANE PRN (14:43)
[2020-12-10] MEDS ORDERED: Potassium Replacement Protocol 1 EACH MISC MISCELLANE PRN (14:43)
[2020-12-10 14:57] LABS: Basophils % (A) 0 %; Eosinophils # (A) 0.1 k/uL (0-0.7); Eosinophils % (A) 1 %; HCT 41.6 % (34.0-46.0); HGB 14.3 gm/dL (11.4-16.0); Lymphocytes # (A) 0.8 k/uL (1.0-4.8); Lymphocytes % (A) 10 %; MCH 29.6 pg (25.0-35.0); MCHC 34.3 g/dL (31.0-37.0); MCV 86.2 fL (80.0-100.0); Mean Platelet Volume 7.9; Monocytes # (A) 0.6 k/uL (0-1.0); Monocytes % (A) 8 %; Neutrophils # (A) 6.2 k/uL (1.3-7.7); Neutrophils % (A) 79 %; Platelet Count 460 k/uL (150-450); RBC 4.83 m/uL (3.80-5.40); RDW 12.7 % (11.5-15.5); WBC 7.8 k/uL (3.8-10.6)
[2020-12-10 15:13] LABS: African American GFR (CKD) >90 (>60 ml/min/1.73 sqM); Anion Gap 14 mmol/L; Blood Urea Nitrogen 18 mg/dL (7-17); Calcium 9.6 mg/dL (8.4-10.2); Carbon Dioxide 21 mmol/L (22-30); Chloride 108 mmol/L (98-107); Glucose 121 mg/dL (74-99); Non-African American GFR(CKD) >90 (>60 ml/min/1.73 sqM); Potassium 4.1 mmol/L (3.5-5.1); Sodium 143 mmol/L (137-145)
--- NOTE | 2020-12-10 15:57 | PN ---
PROGRESS NOTE DATE OF SERVICE: 12/10/2020 This 30-year-old woman who was admitted with acute COVID-19 bilateral interstitial pneumonia with acute hypoxic respiratory failure is on remdesivir. The patient has finished day 3 of remdesivir. Multiple consultants are following the patient closely. The patient is still hypoxic. The patient is being closely monitored. Past medical history reviewed. REVIEW OF SYSTEMS: CARDIOVASCULAR SYSTEM: No angina, palpitations. RESPIRATORY SYSTEM: As mentioned earlier. GI: As mentioned earlier. : No dysuria or retention. NERVOUS SYSTEM: No numbness, weakness. CURRENT MEDICATIONS: Reviewed. They include Tylenol, Ventolin, vitamin C, vitamin D3, Decadron, Lovenox, remdesivir. Doses are reviewed. PHYSICAL EXAMINATION: The patient is alert, oriented x3. Pulse 85, blood pressure 120/70, respiration 18, temperature 97.4, pulse ox 96% on room air. HEENT: Conjunctivae normal. NECK: No jugular venous distention. CARDIOVASCULAR SYSTEM: S1, S2 muffled. RESPIRATORY SYSTEM: Breath sounds diminished at the bases. A few scattered rhonchi and crackles. ABDOMEN: Soft, obese, non-tender. LEGS: No edema. No swelling. NERVOUS SYSTEM: No focal deficit. LABS: CBC within normal limits. Sodium 140, potassium 3.4. C-reactive protein is 1.2. LDH is 374. ASSESSMENT: 1. Acute COVID-19 bilateral interstitial pneumonia, acute hypoxic respiratory failure. 2. Acute COVID-19 infection. 3. Hypokalemia. 4. Elevated inflammatory markers of COVID-19. 5. Elevated D-dimer, present on admission, which has improved. 6. Hypokalemia. 7. Elevated LDH, CRP. 8. History of hypertension. 9. Hypothyroidism. 10.History of cholecystectomy. 11.Obesity with a body mass index of 44.8. 12.FULL CODE. RECOMMENDATIONS AND DISCUSSION: I recommend to continue current medications, continue with the monitoring, symptomatic treatment. Otherwise at this time continue with remdesivir, rest of the medications. Repeat labs. Supplement potassium. Prognosis guarded. Closely follow with Infectious Disease and Pulmonary. Guarded prognosis. Further recommendations to follow. Ensure oxygenation. MMODL / IJN: [id number] /
[2020-12-10] MEDS: REMDESIVIR 100 MG in SODIUM CHLORIDE 0.9% 250 ML IVPB SCH (16:09)
--- NOTE | 2020-12-10 18:23 | P.PN ---
Subjective Progress Note Date: 12/10/20 Principal diagnosis: Acute CoVID 19 pneumonia 30-year-old female patient, obesity BMI of 44.8 maintained on Synthroid for hypothyroidism and the patient also has history of hypertension. She is currently hospitalized for: 19 related pneumonia. The patient came into the hospital because of worsening shortness of breath. She was having fever and chills and bodyaches. Her initial pulse ox was around 80% and she was placed on oxygen and currently she is running at 3 L per minute nasal cannula. She was febrile throughout the emergency stay with a T-max of 100.5. For now, the patient started also on Decadron. Her symptoms started on 11/30/2020 and she started having some issues sinus problems. She went to see her primary care physician, she was given antibiotics and the same time she got checked for COVID 19 and she turned out to be positive. Over the past week, she continued to have fever and chills and some shortness of breath and fatigue. 2 days ago, she con tacted her physician again and she was given a steroid which she did not take. She end up coming into the hospital emergency department. On today's evaluation of 12/08/2020, the patient is doing well. She is a 30-year-old female patient, hospitalized for Covid 19 related pneumonia. She is on 2 L and her pulse ox is around 93%. She is on Decadron. She is also on a #2 of REM. She is taking her treatment without any difficulty and side effects. Other blood work today, she has a d-dimer of 0.44. Her LDH level is at 1358 and his CRP level is at 31.9. The chest x-ray from today is showing patchy bilateral pulmonary infiltrates, right upper lobe, left perihilar and the left hemidiaphragm is quite elevated. No major interval change compared to yesterday. She is afebrile. She has nausea. No vomiting. No emesis. No altered mentation. The patient is a 12/09/2020 in follow-up on the regular medical floor. She is currently sitting up in bed. Awake and alert in no acute distress. Feeling about the same today as compared to yesterday. She is on 3 L/m per nasal cannula to maintain O2 saturation in the 90s. This is day #3 of Remdesivir. White count 5.9. Hemoglobin 13.2. Lymphocytes 1.05. D-dimer 0.39. Sodium 140. Potassium 3.4. Creatinine 0.7. LDH 392. C-reactive protein 1.2. Continue on Decadron, Lovenox, vitamin supplements. The patient is seen today 12/10/2020 follow-up on the regular medical floor. She is currently sitting up in bed. Awake and alert in no acute distress. Denies any worsening shortness of breath, cough or congestion. She is maintaini ng O2 saturations in the 90s on room air. This is day #4 of Remdesivir. She is feeling stronger. White count 7.8. Hemoglobin 14.3. This is day #4 of her Remdesivir. Remains on Lovenox, Decadron, vitamin supplements. Objective - Vital Signs Vital signs: Vital Signs Temp 98.6 F 12/10/20 13:33 Pulse 80 12/10/20 13:33 Resp 18 12/10/20 13:33 BP 114/74 12/10/20 13:33 Pulse Ox 95 12/10/20 13:33 Intake & Output 12/09/20 12/10/20 12/10/20 18:59 06:59 18:59 Intake Total 1450 Balance 1450 Intake: IV 250 Remdesivir 100 mg In 250 Sodium Chloride 0.9% 250 ml @ 250 mls/hr IVPB DAILY@1630 [facility] Rx#: [id number] Oral 1200 Other: Voiding Method Toilet Toilet Toilet # Voids 2 3 - Exam This 30-year-old female patient, Obese, BMI is 44.8,The patient appears well nourished and normally developed. On room air. Vital signs as documented. Head exam is unremarkable. No scleral icterus or corneal arcus noted. Neck is without jugular venous distension, thyromegaly, or carotid bruits. Carotid upstrokes are brisk bilaterally. Lungs are diminished and there are some crackles in lung bases to auscultation and percussion. Cardiac exam reveals the PMI to be normally sized and situated. Rhythm is regular. First and second heart sounds normal. No murmurs, rubs or gallops. Abdominal exam reveals normal bowel sounds, no masses, no organomegaly and no aortic enlargement. Extremities are nonedematous and both femoral and pedal pulses are normal. - Labs CBC & Chem 7: 12/10/20 14:43 12/10/20 06:20 Labs: Abnormal Lab Results - Last 24 Hours (Table) 12/10/20 12/10/20 12/10/20 Range/Units 06:20 06:25 14:43 Plt Count 460 H (150-450) k/uL Lymphocytes # 0.8 L (1.0-4.8) k/uL Chloride 108 H (98-107) mmol/L Carbon Dioxide 21 L (22-30) mmol/L BUN 18 H (7-17) mg/dL Glucose 121 H (74-99) mg/dL Lactate Dehydrogenase 374 H (120-246) U/L Assessment and Plan Assessment: 1 acute COVID 19 related pneumonia with secondary dyspnea and cough and shortness of breath. The patient is stable on room air. She is undergoing treatment with Lanoxin, Decadron and Remdesivir She is on day #4. 2 Dyspnea, secondary to above 3 acute hypoxic respiratory failure secondary to above and the patient is currently on 2 L of oxygen by nasal cannula 4 Lymphopenia secondary to above 5 obesity with a BMI of 44.8 6 hypothyroidism 7 hypertension Plan The patient was seen and evaluated by Dr. Patricia Currently stable from the pulmonary standpoint Continue Remdesivir, Lovenox, Decadron, vitamin supplement Follow-up chest x-ray in a.m. Discharge in a.m. We will continue to follow I, the cosigning physician, performed a history & physical examination of the patient. Lungs sounds with crackles in the bilateral posterior bases. Maintaining good O2 saturations in the 90s on room air. I discussed the assessment and plan of care with my nurse practitioner, Mei Callahan. I attest to the above note as dictated by her.
[2020-12-10] MEDS: MELATONIN 3 MG TABLET PO SCH (21:23)
--- NOTE | 2020-12-11 02:10 | PN ---
PROGRESS NOTE DATE OF SERVICE: 12/10/2020 REASON FOR FOLLOWUP: COVID-19 pneumonia. INTERVAL HISTORY: Patient is currently afebrile. The patient is feeling better. Breathing comfortably. Currently off supplemental oxygen. The patient denies any chest pain. Occasional cough. No abdominal pain or diarrhea. PHYSICAL EXAMINATION: Blood pressure 125/79, pulse of 81, temperature 98.9. She is 96% on room air. General description is a middle-aged female lying in bed in no distress. Respiratory system: Unlabored breathing, decreased breath sounds in the base, with no wheeze. Heart S1, S2. Regular rate. ABDOMEN: Soft, no tenderness. LABS: Hemoglobin 14.1, white count 7.8, creatinine 0.67. DIAGNOSTIC IMPRESSION: Patient is a middle-aged female up in the bed in no distress. Respiratory system: Unlabored breathing, decreased breath sounds in the base. No wheeze. Heart S1, S2. Regular rate and rhythm. ABDOMEN: Soft, no tenderness. LAB: Hemoglobin 14, white count 7.8. BUN of 18, creatinine 0.67. DIAGNOSTIC IMPRESSION AND PLAN: Patient with acute COVID-19 infection in this patient who did show overall clinical improvement. She has completed her Remdesivir therapy. Currently on dexamethasone, Lovenox, zinc, ascorbic acid to continue and monitor clinical course closely. Continue supportive care. MMODL / IJN: [id number] /
[2020-12-11] MEDS: LEVOTHYROXINE 50 MCG TAB PO SCH (05:06)
[2020-12-11] MEDS: CHOLECALCIFEROL 25 MCG (1000 IU) TABLET PO SCH (08:33)
[2020-12-11] MEDS: LABETALOL 200 MG TAB PO SCH (08:33)
[2020-12-11] MEDS: DEXAMETHASONE SOD PHOSPHATE 10 MG/ML 1 ML VIAL IV SCH (08:33)
[2020-12-11] MEDS: ASCORBIC ACID 500 MG TAB PO SCH (08:33)
[2020-12-11] MEDS: ZINC SULFATE 220 MG CAP PO SCH (08:33)
[2020-12-11] MEDS: ENOXAPARIN 40 MG/0.4 ML SYRINGE SQ SCH (08:34)
[2020-12-11] MEDS: ALBUTEROL HFA INHALER INHALATION SCH ×3 (08:56→16:02)
--- NOTE | 2020-12-11 09:45 | XR ---
EXAMINATION TYPE: XR chest 1V portable DATE OF EXAM: 12/11/2020 COMPARISON: Prior chest x-ray 12/08/2020 HISTORY: Covid pneumonia TECHNIQUE: Single frontal view of the chest is obtained. FINDINGS: Airspace disease in the right upper lobe is somewhat less confluent. Bilateral patchy dens ity persists. No evident pneumothorax or pleural effusion. Cardiomediastinal silhouette is within nor mal limits. IMPRESSION: Findings consistent with patient's history of pneumonia.
[2020-12-11 10:18] VITALS: RESP 18
--- NOTE | 2020-12-11 14:38 | P.DS ---
Providers Date of admission: 12/07/20 14:26 Expected date of discharge: 12/11/20 Attending physician: Alona Ferris Consults: 12/07/20 14:09 Consult Physician Urgent Consulting Provider: Cortez Callahan Consult Reason/Comments: COVID Do you want consulting provider notified?: Yes 12/07/20 14:10 Consult Physician Urgent Consulting Provider: Shikha Kingston Consult Reason/Comments: COVID Do you want consulting provider notified?: Yes Primary care physician: Elisha Longoria [facility] Course: Final diagnosis Acute covid 19 bilateral interstitial pneumonia, acute hypoxic respiratory failure Acute covid 19 infection Hypokalemia elevated inflammatory markers of Covid 19 Elevated d-dimer, present on admission which has improved Hypokalemia Elevated LDH, CRP History of hypertension Hypothyroidism History of cholecystectomy Obesity with a BMI of 44.8 Full code Discharge disposition Patient is being discharged in a stable condition with guarded prognosis to home and instructed to continue to isolate for an additional 7-10 days until symptom- free. Patient will follow-up with Dr. Longoria in the outpatient setting upon discharge. Patient will also follow-up with pulmonary in the outpatient setting in a few weeks. Patient is to continue with zinc, dexamethasone, vitamin supplements in the outpatient setting. Total time taken is greater than 35 minutes. Hospital course This is a 30-year-old female who was recently admitted with acute blood 19 bilateral interstitial pneumonia with acute hypoxic respiratory failure and was being closely monitored. Pulmonary following and patient was started on Remdesivir and has completed the treatment. Patient also remains on vitamin C, D, zinc supplements along with dexamethasone and will continue in the outpatient setting to complete the course. Patient will also be following up with pulmonary in 2-3 weeks. Patient also instructed to continue to isolate for an additional week, frequent handwashing, wears a mask, social distancing, and monitor for fever and treat with Tylenol and/or Motrin. Currently no reports of chest pain, shortness of breath, or palpitations. Patient is afebrile. No reports of nausea or vomiting and patient is tolerating diet. Patient will be discharged home today. On exam vital signs are stable. Cardio S1, S2 are muffled. Respiratory system shows diminished breath sounds at the bases with no wheezing or rhonchi noted. Abdomen is soft and nontender. Nervous system shows no focal deficits. Please refer to medication reconciliation sheet for a list of medications. Patient Condition at Discharge: Stable Plan - Discharge Summary New Discharge Prescriptions: New Zinc Sulfate [Orazinc] 220 mg PO DAILY 30 Days #30 cap Acetaminophen Tab [Tylenol] 650 mg PO Q6HR PRN #30 tab PRN Reason: Mild Pain Or Fever > 100.5 Dexamethasone 6 mg PO DAILY 6 Days #6 tablet Ascorbic Acid [Vitamin C] 1,000 mg PO DAILY 30 Days #60 tab Cholecalciferol [Vitamin D3 (25 Mcg = 1000 Iu)] 25 mcg PO DAILY 30 Days #30 tablet Continue Labetalol [Trandate] 200 mg PO BID Levothyroxine Sodium [Synthroid] 50 mcg PO DAILY Albuterol Inhaler [Ventolin Hfa Inhaler] 2 puff INHALATION RT-Q4H PRN PRN Reason: Shortness Of Breath Discontinued predniSONE [Deltasone] 40 mg PO DAILY Discharge Medication List Albuterol Inhaler [Ventolin Hfa Inhaler] 2 puff INHALATION RT-Q4H PRN 12/07/20 [History] Labetalol [Trandate] 200 mg PO BID 12/07/20 [History] Levothyroxine Sodium [Synthroid] 50 mcg PO DAILY 12/07/20 [History] Acetaminophen Tab [Tylenol] 650 mg PO Q6HR PRN #30 tab 12/11/20 [Rx] Ascorbic Acid [Vitamin C] 1,000 mg PO DAILY 30 Days #60 tab 12/11/20 [Rx] Cholecalciferol [Vitamin D3 (25 Mcg = 1000 Iu)] 25 mcg PO DAILY 30 Days #30 tablet 12/11/20 [Rx] Dexamethasone 6 mg PO DAILY 6 Days #6 tablet 12/11/20 [Rx] Zinc Sulfate [Orazinc] 220 mg PO DAILY 30 Days #30 cap 12/11/20 [Rx] Follow up Appointment(s)/Referral(s): Parth Patricia MD [STAFF PHYSICIAN] - 01/10/21 10:00 am Elisha Longoria MD [Primary Care Provider] - 12/26/20 2:00 am Patient Instructions/Handouts: Coronavirus Disease 2019 (COVID-19) Activity/Diet/Wound Care/Special Instructions: Dr. Cooney to see prior to DC Activity limited until follow-up Follow-up with primary care provider upon discharge Follow-up pulmonary outpatient Encourage rest and fluids Monitor for temp and treat with Tylenol and/or Motrin Continue to isolate, social distance, wear a mask, frequent handwashing Continue with the use of incentive spirometer at least 10 times every hour while awake Discharge Disposition: HOME SELF-CARE
[2020-12-11 14:52] VITALS: BP 128/76; PULSE 81; TEMP 97.5
--- NOTE | 2020-12-11 14:54 | PN ---
PROGRESS NOTE DATE OF SERVICE: 12/11/2020 REASON FOR FOLLOWUP: COVID-19 pneumonia. INTERVAL HISTORY: The patient is seen on rounds this morning. The patient has been afebrile. She is breathing comfortably on room air, currently saturating at 96%. Denies having any chest pain, shortness of breath. Occasional cough. No abdominal pain or diarrhea. PHYSICAL EXAMINATION: Blood pressure is 106/73, pulse 77, temperature 98.3. She is 96% on room air. General description is a middle-aged female up in the bed in no distress. RESPIRATORY SYSTEM: Unlabored breathing, decreased breath sounds at the bases. No wheeze. EXTREMITIES: No edema of feet. LABS: No new labs have been obtained today except Mag of 2.0. Chest x-ray with no significant change. DIAGNOSTIC IMPRESSION AND PLAN: Patient with acute COVID-19 pneumonia in this patient who has shown overall clinical improvement. The patient is completing her remdesivir therapy. She is going home on course of steroids, zinc, ascorbic acid and close outpatient followup. MMODL / IJN: [id number] /
[2020-12-11] MEDS: REMDESIVIR 100 MG in SODIUM CHLORIDE 0.9% 250 ML IVPB SCH (15:22)
--- NOTE | 2020-12-11 18:53 | P.PN ---
Subjective Progress Note Date: 12/11/20 Principal diagnosis: Acute CoVID 19 pneumonia 30-year-old female patient, obesity BMI of 44.8 maintained on Synthroid for hypothyroidism and the patient also has history of hypertension. She is currently hospitalized for: 19 related pneumonia. The patient came into the hospital because of worsening shortness of breath. She was having fever and chills and bodyaches. Her initial pulse ox was around 80% and she was placed on oxygen and currently she is running at 3 L per minute nasal cannula. She was febrile throughout the emergency stay with a T-max of 100.5. For now, the patient started also on Decadron. Her symptoms started on 11/30/2020 and she started having some issues sinus problems. She went to see her primary care physician, she was given antibiotics and the same time she got checked for COVID 19 and she turned out to be positive. Over the past week, she continued to have fever and chills and some shortness of breath and fatigue. 2 days ago, she con tacted her physician again and she was given a steroid which she did not take. She end up coming into the hospital emergency department. On today's evaluation of 12/08/2020, the patient is doing well. She is a 30-year-old female patient, hospitalized for Covid 19 related pneumonia. She is on 2 L and her pulse ox is around 93%. She is on Decadron. She is also on a #2 of REM. She is taking her treatment without any difficulty and side effects. Other blood work today, she has a d-dimer of 0.44. Her LDH level is at 1358 and his CRP level is at 31.9. The chest x-ray from today is showing patchy bilateral pulmonary infiltrates, right upper lobe, left perihilar and the left hemidiaphragm is quite elevated. No major interval change compared to yesterday. She is afebrile. She has nausea. No vomiting. No emesis. No altered mentation. The patient is a 12/09/2020 in follow-up on the regular medical floor. She is currently sitting up in bed. Awake and alert in no acute distress. Feeling about the same today as compared to yesterday. She is on 3 L/m per nasal cannula to maintain O2 saturation in the 90s. This is day #3 of Remdesivir. White count 5.9. Hemoglobin 13.2. Lymphocytes 1.05. D-dimer 0.39. Sodium 140. Potassium 3.4. Creatinine 0.7. LDH 392. C-reactive protein 1.2. Continue on Decadron, Lovenox, vitamin supplements. The patient is seen today 12/10/2020 follow-up on the regular medical floor. She is currently sitting up in bed. Awake and alert in no acute distress. Denies any worsening shortness of breath, cough or congestion. She is maintaini ng O2 saturations in the 90s on room air. This is day #4 of Remdesivir. She is feeling stronger. White count 7.8. Hemoglobin 14.3. This is day #4 of her Remdesivir. Remains on Lovenox, Decadron, vitamin supplements. The patient is seen today 12/11/2000 in follow-up on the regular medical floor. Currently sitting up in a chair at the bedside. Awake and alert in no acute distress. He feeling nearly back to her baseline as far as her pulmonary status is concerned. She is maintaining O2 saturations at 96% on room air. She completed a #5 of her Remdesivir. Continued on Decadron, Lovenox, vitamin supplements. Objective - Vital Signs Vital signs: Vital Signs Temp 97.5 F L 12/11/20 13:58 Pulse 81 12/11/20 13:58 Resp 18 12/11/20 13:58 BP 128/76 12/11/20 13:58 Pulse Ox 96 12/11/20 13:58 Intake & Output 12/10/20 12/11/20 12/11/20 18:59 06:59 18:59 Intake Total 1450 900 Balance 1450 900 Intake: IV 250 Remdesivir 100 mg In 250 Sodium Chloride 0.9% 250 ml @ 250 mls/hr IVPB DAILY@16[facility] Rx#: [id number] Oral 1200 900 Other: Voiding Method Toilet Toilet Toilet # Voids 3 2 1 # Bowel Movements 0 0 - Exam This is a very pleasant 30-year-old female patient. On room air with O2 saturation 96%. Vital signs as documented. Head exam is unremarkable. No scleral icterus or corneal arcus noted. Neck is without jugular venous distension, thyromegaly, or carotid bruits. Carotid upstrokes are brisk bilaterally. Lungs are diminished and there are some crackles in lung bases to auscultation and percussion. Cardiac exam reveals the PMI to be normally sized and situated. Rhythm is regular. First and second heart sounds normal. No murmurs, rubs or gallops. Abdominal exam reveals normal bowel sounds, no masses, no organomegaly and no aortic enlargement. Extremities are nonedematous and both femoral and pedal pulses are normal. - Labs CBC & Chem 7: 12/10/20 14:43 12/10/20 06:20 Assessment and Plan Assessment: 1 acute COVID 19 related pneumonia with secondary dyspnea and cough and shortness of breath. The patient is stable on room air. 2 Dyspnea, secondary to above 3 acute hypoxic respiratory failure secondary to above and the patient is currently on 2 L of oxygen by nasal cannula 4 Lymphopenia secondary to above 5 obesity with a BMI of 44.8 6 hypothyroidism 7 hypertension Plan The patient was seen and evaluated by Dr. Patricia Currently stable from the pulmonary standpoint On room air Completed Remdesivir today Complete a 10 day course of dexamethasone Follow-up closely with her PCP I, the cosigning physician, performed a history & physical examination of the patient. Lungs sounds with crackles in the bilateral posterior bases. Maintaining good O2 saturations in the 90s on room air. I discussed the assessment and plan of care with my nurse practitioner, Mei Callahan. I attest to the above note as dictated by her.
== END 2020-12-11 17:40 | disposition home or self-care (01) | DRG 177 ==
LOC: EC 11:30 → 4SSUR 14:26
PROVIDERS: ADMIT Internal Medicine; ATTEND Internal Medicine
PROC: XW033E5 Introduction of Remdesivir Anti-infective into Peripheral Vein, Percutaneous Approach, New Technology Group 5 (ICD-10-PCS; principal; 2020-12-07)
DX: U07.1 COVID-19 (principal); J12.82 Pneumonia due to coronavirus disease 2019; J96.01 Acute respiratory failure with hypoxia; Z68.41 Body mass index [BMI] 40.0-44.9, adult; E66.9 Obesity, unspecified; D72.810 Lymphocytopenia; E87.6 Hypokalemia; I10 Essential (primary) hypertension; E03.9 Hypothyroidism, unspecified; Z79.890 Hormone replacement therapy; Z79.899 Other long term (current) drug therapy; Z90.49 Acquired absence of other specified parts of digestive tract; Z87.19 Personal history of other diseases of the digestive system; Z98.890 Other specified postprocedural states; Z83.3 Family history of diabetes mellitus
CPT/HCPCS: 36415; 71045; 71046; 80048; 80053; 83615; 83735; 84484; 85025; 85379; 85610; 85730; 86140; 93005; 94640; 94760; 96374; 96375; 99285